=== PATIENT | male | born 1955 | race Caucasian/White ===

== ENCOUNTER 2017-02-11 13:04 | Emergency (ER) | payer OTHER ==
[~2017-02-11] VITALS: Wt 73.0 kg
[2017-02-11] MEDS ORDERED: CHLORPROMAZINE 25 MG INJ IM ONE (14:00)
[2017-02-11] MEDS ORDERED: morphine 4 MG/ML VIAL IV STA (14:36)
[2017-02-11] MEDS ORDERED: SOD CHLORIDE 0.9% 1,000 ML IV STA (14:36)
[2017-02-11] MEDS ORDERED: MAGNESIUM SULFATE 2 GM/50 ML 50 ML IVPB ONE (15:00)
[2017-02-11] MEDS ORDERED: METOCLOPRAMIDE 10 MG INJ IV ONE (15:00)
--- NOTE | 2017-02-11 15:24 | RADRPT ---
PROCEDURE: CT abdomen and pelvis without contrast. CLINICAL INDICATION: Abdominal pain. Recent cholecystectomy TECHNIQUE: CT scan of the abdomen and pelvis without contrast was performed on a multi-slice CT [facility] . Sagittal and coronal reformatted images were obtained from the axial source images. One or more of the following dose reduction techniques were used: - Automated exposure control. - Adjustment of the mA and/or kV according to patient size. - Use of iterative reconstruction technique. DLP 544.0 mGycm. CTDIvol 9.6 mGy COMPARISON: None FINDINGS: Trace layering bilateral pleural fluid is present. There is limited evaluation of the solid viscera from the lack of IV contrast. There are surgical changes of a cholecystectomy with a trace amount of air and fluid seen in the gal lbladder fossa with no organized fluid collection. Mild fat stranding is also present. Surgical drai nage catheter is seen extending into the gallbladder fossa. There is no evidence of bowel obstruction. There are loops of small bowel seen within the left abdom en involving the distal jejunum and proximal ileum with air-fluid levels. There is no intraperitonea l free air. There is no evidence of abscess. The appendix is not visualized. There is diverticulosis without diverticulitis. There are no enlarged lymph nodes. The kidneys are symmetric in size bilaterally. There is a punctate left mid kidney nonobstructing st one with no visible right-sided renal stones. No ureteral stones are present. There is no hydronephr osis or perinephric stranding. There is uniform density of the liver with no gross focal lesion or biliary ductal dilatation. The spleen is unremarkable without mass. The adrenal glands are within normal limits without mass. The pancreas is unremarkable without focal lesion or surrounding inflammatory changes. Small fat containing hernias are seen within the upper abdominal midline with small bilateral fat co ntaining inguinal hernias as well. There is aortic atherosclerosis without aneurysmal dilatation. Bilateral iliofemoral bypass. In ad dition bilateral common iliac artery stents are present. Degenerative changes are seen in the lumbar spine with no acute osseous abnormality. The prostate is moderately enlarged. IMPRESSION: There are surgical changes of cholecystectomy with a small amount of air and fluid seen in the surgi caleb bed without organized fluid collection. Fluid may be postsurgical in nature however the presence of biliary leak is not fully excluded. Mildly dilated small is seen in the left lower quadrant with air-fluid levels ileus without evidence of a complete obstruction. A developing partial obstruction can also be considered within the diffe rential. Punctate nonobstructing left mid kidney renal stone is present. Surgical changes of the aorta and the presence of bilateral common iliac artery stents. Trace layering effusions. Small fat containing incisional related hernias are seen at the midline. Atherosclerotic disease is present. RPTAT: AA .Jaswant Lynch MD, Date Time Electronically viewed and signed by .Jaswant Lynch MD, MD on 02/11/2017 15:23 .J/
[2017-02-11] MEDS ORDERED: CHLO10TA9 PO (18:43)
[2017-02-11] MEDS ORDERED: METO10TA92 PO (18:43)
[2017-02-11] MEDS ORDERED: OXYC-279 PO (18:47)
--- NOTE | 2017-02-11 18:52 | ERD ---
ER Documentation Chief Complaint Chief Complaint HICCUPS X 5 DAYS HPI This 62-year-old presents 7 days after gallbladder surgery with 5 days of hiccups. Hiccups are exacerbating his right upper quadrant pain. He has had hiccups in the past prior to the gallbladder surgery. Has had no fever chills. He still passing gas and having bowel movements. ROS All systems reviewed and are negative except as per history of present illness. Medications Home Meds Active Scripts Oxycodone HCl/Acetaminophen (Percocet 5-325 mg Tablet) 1 Each Tablet, 1 EACH PO Q6, #14 TAB Prov:MARY SCHMITT DO 02/11/17 Chlorpromazine Hcl* (Thorazine*) 10 Mg Tab, 10 MG PO TID, #14 TAB Prov:MARY SCHMITT DO 02/11/17 Metoclopramide* (Reglan*) 10 Mg Tablet, 10 MG PO Q6 Y for NAUSEA AND/OR VOMITING , #20 TAB Prov:MARY SCHMITT DO 02/11/17 PMhx/Soc History of Surgery: Yes (Cholecystectomy) Hx Alcohol Use: No Hx Substance Use: No Hx Tobacco Use: No Smoking Status: Never smoker Physical Exam Vitals Vital Signs Date Time Temp Pulse Resp B/P Pulse Ox O2 Delivery O2 Flow Rate FiO2 02/11/17 13:08 98.0 101 18 166/90 99 Physical Exam Const: [] Moderate distress Head: Atraumatic Eyes: Normal Conjunctiva ENT: Normal External Ears, Nose and Mouth. Neck: Full range of motion..~ No meningismus. Resp: Clear to auscultation bilaterally Cardio: Regular rate and rhythm, no murmurs Abd: Soft, mild upper abdominal tenderness in the right side without guarding or rebound, non distended. Normal bowel sounds Skin: No petechiae or rashes Ext: No cyanosis, or edema Neur: Awake and alert oriented 3, no focal deficits Psych: Normal Mood and Affect Result Diagram: 02/11/17 1450 02/11/17 1450 Results 24 hrs Laboratory Tests Test 02/11/17 14:50 White Blood Count 11.410^3/ul Red Blood Count 4.3110^6/ul Hemoglobin 12.3g/dl Hematocrit 37.2% Mean Corpuscular Volume 86.3fl Mean Corpuscular Hemoglobin 28.5pg Mean Corpuscular Hemoglobin Concent 33.1g/dl Red Cell Distribution Width 13.6% Platelet Count 91012^3/UL Mean Platelet Volume 8.5fl Neutrophils % 78.7% Lymphocytes % 12.4% Monocytes % 6.9% Eosinophils % 0.8% Basophils % 0.4% Nucleated Red Blood Cells % 0.0/100WBC Neutrophils # 9.010^3/ul Lymphocytes # 1.410^3/ul Monocytes # 0.810^3/ul Eosinophils # 0.110^3/ul Basophils # 0.110^3/ul Nucleated Red Blood Cells # 0.010^3/ul Urine Color YELLOW Urine Clarity CLEAR Urine pH 6.0 Urine Specific [place] 1.024 Urine Ketones NEGATIVEmg/dL Urine Nitrite NEGATIVEmg/dL Urine Bilirubin NEGATIVEmg/dL Urine Urobilinogen NEGATIVEmg/dL Urine Leukocyte Esterase 1+Hali/ul Urine Microscopic RBC 0/HPF Urine Microscopic WBC 4/HPF Urine Mucus MODERATE/HPF Urine Hemoglobin NEGATIVEmg/dL Urine Glucose NEGATIVEmg/dL Urine Total Protein 1+mg/dl Sodium Level 144mmol/L Potassium Level 3.3mmol/L Chloride Level 102mmol/L Carbon Dioxide Level 30mmol/L Anion Gap 15 Blood Urea Nitrogen 4mg/dl Creatinine 0.89mg/dl Glucose Level 109mg/dl Calcium Level 8.6mg/dl Total Bilirubin 0.2mg/dl Direct Bilirubin 0.00mg/dl Indirect Bilirubin 0.2mg/dl Aspartate Amino Transf (AST/SGOT) 88IU/L Alanine Aminotransferase (ALT/SGPT) 107IU/L Alkaline Phosphatase 70IU/L Total Protein 6.6g/dl Albumin 3.7g/dl Globulin 2.90g/dl Albumin/Globulin Ratio 1.27 Lipase 502U/L Current Medications Medications (Trade) Dose Ordered Sig/Lore Route PRN Reason Start Time Stop Time Status Last Admin Dose Admin Chlorpromazine 25 mg 25 mg ONCE ONCE IM 02/11/17 14:00 02/11/17 14:01 DC 02/11/17 14:56 Sodium Chloride (NS) 1,000 ml @ 1,000 mls/hr Q1H STAT IV 02/11/17 14:36 02/11/17 15:35 DC 02/11/17 15:22 Morphine Sulfate (morphine) 4 mg ONCE STAT IV 02/11/17 14:36 02/11/17 14:41 DC 02/11/17 15:21 Metoclopramide HCl 10 mg 10 mg ONCE ONCE IV 02/11/17 15:00 02/11/17 15:01 DC 02/11/17 15:21 Magnesium Sulfate (Magnesium Sulfate 2 Gm/50 ml) 50 ml @ 25 mls/hr ONCE ONCE IVPB 02/11/17 15:00 02/11/17 16:59 DC 02/11/17 15:21 Procedures/MDM Intractable hiccups likely secondary to diaphragmatic irritation from recent gallbladder surgery. Initial EKG was artifactual and irregular secondary to persistent hiccups. Patient is given 25 mg of Thorazine workup was performed secondary to the recent surgery and likely diaphragmatic irritation worry for perforation or infection. Normal postoperative changes seen. Normal postoperative labs with mild leukocytosis and mild out lipase elevation. She was also given 10 mg of Reglan 4 mg of morphine for the pain. Hiccups did subside after the Thorazine and morphine. Is also given 2 mg of magnesium his yard he had a prolonged QT on his initial EKGs and he was giving to medicines that lead to QT prolongation. She is still passing gas and having bowel movements without current ileus patient was monitored for several hours in the emergency room. In stable condition feeling much better. I am going to discharge him with Thorazine, Reglan and Percocet for any severe pain. She can call his surgeon on Tuesday to follow-up. CT abdomen pelvis interpretation: Postoperative changes with fat stranding and small amounts of air, no obvious abscess collection, no bowel obstruction with mild possible ileus, no renal abnormalities, no fracture EKG interpretation #1: Sinus tachycardia rate of 115 with significant artifact, prolonged QT at 558, normal axis. Abnormal EKG EKG interpretation #2: Normal sinus rhythm rate of 99, single PVC that was likely just a pickup, normal axis, no ST or T-wave changes concerning for acute ischemia, QT is 479. compliance monitor interpretation: Sinus rhythm without arrhythmia. Departure Diagnosis: Primary Impression: Hiccoughs Additional Impression: Postoperative pain Condition: Stable MARY SCHMITT DO Feb 11, 2017 18:52
[2017-02-11 19:00] VITALS: BP 188/85; PULSE 104; RESP 17; TEMP 97.9
== END 2017-02-11 19:03 | disposition home or self-care (01) ==
LOC: FTE 13:04
DX: R06.6 Hiccough (principal); G89.18 Other acute postprocedural pain; R10.11 Right upper quadrant pain
CPT/HCPCS: 36415; 74176; 80053; 81001; 83690; 85025; 93005; 96372; 96374; 96375; J2270; J2765; J3230; J3475; J7030; Z7502

== ENCOUNTER 2017-02-18 09:47 | Inpatient (IN) | payer OTHER ==
[~2017-02-18] VITALS: Ht 175.3 cm; Wt 72.0 kg
[~2017-02-18 09:47] MED LIST: CHLO10TA9 PO; METO10TA92 PO; OXYC-279 PO
[2017-02-18] MEDS ORDERED: HYDROmorphONE 1 MG/ML SYG IV STA (10:21)
[2017-02-18] MEDS ORDERED: SOD CHLORIDE 0.9% 1,000 ML IV STA (10:21)
[2017-02-18] MEDS ORDERED: ONDANSETRON 4 MG INJ IV STA (10:21)
[2017-02-18] MEDS ORDERED: CHLORPROMAZINE 25 MG INJ IM ONE (10:30)
[2017-02-18 10:56] LABS: BASOPHIL # 0.1 10^3/ul (0.0-0.1); BASOPHILS % 0.6 % (0.0-2.0); EOSINOPHILS % 0.2 % (0.0-7.0); HEMATOCRIT 38.6 % (42.0-52.0); HEMOGLOBIN 12.8 g/dl (14.0-18.0); LYMPHOCYTES # 1.2 10^3/ul (0.8-2.9); LYMPHOCYTES % 7.5 % (15.0-51.0); MEAN CORPUSCULAR HEMOGLOBIN 28.5 pg (29.0-33.0); MEAN CORPUSCULAR HGB CONC 33.2 g/dl (32.0-37.0); MEAN PLATELET VOLUME 8.3 fl (7.4-10.4); MONOCYTE # 0.9 10^3/ul (0.3-0.9); MONOCYTES % 5.3 % (0.0-11.0); NEUTROPHIL # 13.8 10^3/ul (1.6-7.5); NEUTROPHILS % 85.8 % (39.0-77.0); RED BLOOD COUNT 4.49 10^6/ul (4.70-6.10); RED CELL DISTRIBUTION WIDTH 13.4 % (11.5-14.5); WHITE BLOOD COUNT 16.1 10^3/ul (4.8-10.8)
[2017-02-18 11:10] LABS: PLATELET COUNT 697 10^3/UL (140-415)
[2017-02-18 11:15] LABS: INR 0.97; PARTIAL THROMBOPLASTIN TIME 29.1 Sec (25.0-35.0); PROTIME 12.9 Sec (12.2-14.2)
[2017-02-18 11:16] LABS: ALANINE AMINOTRANSFERASE 37 IU/L (13-69); ALBUMIN/GLOBULIN RATIO 1.21; ALKALINE PHOSPHATASE 80 IU/L (42-121); ANION GAP 15 (8-16); ASPARTATE AMINO TRANSFERASE 25 IU/L (15-46); BILIRUBIN,INDIRECT 0.3 mg/dl (0-1.1); BILIRUBIN,TOTAL 0.3 mg/dl (0.2-1.3); BLOOD UREA NITROGEN 11 mg/dl (7-20); CALCIUM 9.1 mg/dl (8.4-10.2); CARBON DIOXIDE 28 mmol/L (21-31); CHLORIDE 102 mmol/L (97-110); CREATININE 0.96 mg/dl (0.61-1.24); GLUCOSE 123 mg/dl (70-220); POTASSIUM 4.2 mmol/L (3.5-5.1); SODIUM 141 mmol/L (135-144); TOTAL PROTEIN 7.3 g/dl (6.1-8.1)
[2017-02-18 11:31] LABS: TROPONIN-I < 0.012 ng/ml (0.00-0.12)
[2017-02-18] MEDS ORDERED: IOHEXOL 300MG/ML 150 ML BTL ONE (11:55)
[2017-02-18] MEDS ORDERED: SOD CHLORIDE 0.9% 100 ML ONE (11:55)
--- NOTE | 2017-02-18 12:33 | RADRPT ---
PROCEDURE: CT ABDOMEN AND PELVIS WITH IV CONTRAST. CLINICAL INDICATION: Abdominal pain and vomiting. Post gallbladder surgery TECHNIQUE: CT scan of the abdomen and pelvis without contrast was performed on a multidetector hig h-resolution CT scanner following the use of IV contrast. 96 cc Omnipaque-300 was administered. Ahsan nal and sagittal reformatted images were obtained from the axial source images. Images were reviewed on a high-resolution PACS workstation. The total exam CTDI equals 10.7 mGy and the total exam DLP e quals 652 mGy-cm. One or more of the following dose reduction techniques were used: Automated exposure control. Adjustment of the mA and/or kV according to patient size. Use of iterative reconstruction technique. COMPARISON: February 11, 2017 FINDINGS: CT abdomen: The lung bases are clear. The heart size is within limits. There is no significant pericardial effus ion. Hepatic morphology is within limits. There is a 1.9 cm lesion within the posterior right lobe liver, with peripheral nodular enhancement, likely consistent with a benign hemangioma. Status post cholec ystectomy. There is a small focal fluid collection within the gallbladder fossa measuring 3.9 x 2.1 x 1.6 cm, containing air. The spleen and pancreas are within normal limits. Both adrenal glands are within normal limits. Both kidneys are and normal anatomic position. No evidence of obstruction or hydronephrosis. There a re small bilateral renal cysts. No gross renal/ureteric calculi. No evidence of obstruction or hydro nephrosis. The visualized GI tract demonstrate normal caliber loops of small and large bowel. No evidence of toney wel obstruction. Stool filled loops of large bowel noted. The appendix is not clearly identified, ho wever no inflammatory changes within the right lower quadrant. The aorta demonstrates atherosclerotic calcifications. Bilateral common iliac postsurgical changes a re noted with stents. No significant retroperitoneal lymphadenopathy. CT pelvis: The bladder is partially collapsed. The prostate gland is enlarged and lobulated measuring 5.3 x 5.0 cm. There is sigmoid diverticulosis. No significant free fluid. No significant pelvic lymphadenopat hy. The visualized osseous structures appears to be within normal limits. IMPRESSION: 1. THERE IS A SMALL FOCAL FLUID COLLECTION WITHIN THE GALLBLADDER FOSSA/SURGICAL BED MEASURING 3.9 X 2.1 X 1.6 CM, CONTAINING AIR. THIS IS NEW SINCE PRIOR EXAMINATION. CANNOT EXCLUDE THE POSSIBILITY O F ABSCESS. Postoperative seroma or biloma are also possibilities. Status post removal of previously noted surgical drainage catheter. 2. No evidence of bowel obstruction. Resolution of previously noted mildly dilated is fluid-filled l oops of small bowel. 3. Prostamegaly. Recommend correlation with PSA levels. 4. No evidence of bowel obstruction. Sigmoid diverticulosis. 5. No evidence of free fluid or free air. 6. Postsurgical changes of the aorta and common iliac arteries with stents. 7. 1.9 cm posterior right lobe liver benign hemangioma. RPTAT: AAPP Physician Kae Date Time Electronically viewed and signed by Physician Kae on 02/18/2017 12:32 MARIBELL/
[2017-02-18] MEDS ORDERED: SODIUM CHLORIDE 0.9% 1L BAG IV* STA (12:39)
[2017-02-18] MEDS ORDERED: PIPER-TAZO 3.375 GM IV (PMX) 50 ML IVPB STA (12:39)
[2017-02-18] MEDS ORDERED: VANCOMYCIN 1 GM (PMX) 250 ML IVPB STA (12:39)
[2017-02-18] MEDS ORDERED: ACETAMINOPHEN 325 MG TAB PO PRN ×2 (13:00→15:00)
[2017-02-18] MEDS ORDERED: ONDANSETRON 4 MG INJ IV PRN ×2 (13:00→15:00)
--- NOTE | 2017-02-18 13:42 | ERD ---
ER Documentation Chief Complaint Chief Complaint ABD. PAIN, N/V FOR 12 DAYS S/P CHOLECYSTECTOMY HPI Patient is a 62-year-old male with hypertension and hiccups who presents with abdominal pain. He had a cholecystectomy done 2 weeks ago. This was done at [facility]. He has persistent hiccups since then as well. He said that 2 days ago he started vomiting anything that he eats or drinks and cannot keep anything down. He has had soft stools. The patient has abdominal pain. He did have his BRADLEY drainage tube removed on Tuesday. Upon review of old medical records the patient one previous visit on February 11 for hiccups. ROS All systems reviewed and are negative except as per history of present illness. Medications Home Meds Active Scripts Oxycodone HCl/Acetaminophen (Percocet 5-325 mg Tablet) 1 Each Tablet, 1 EACH PO Q6, #14 TAB Prov:MARY SCHMITT DO 02/11/17 Chlorpromazine Hcl* (Thorazine*) 10 Mg Tab, 10 MG PO TID, #14 TAB Prov:MARY SCHMITT DO 02/11/17 Metoclopramide* (Reglan*) 10 Mg Tablet, 10 MG PO Q6 Y for NAUSEA AND/OR VOMITING , #20 TAB Prov:MARY SCHMITT DO 02/11/17 Allergies Allergies: Coded Allergies: No Known Allergy (Unverified , 02/18/17) PMhx/Soc History of Surgery: Yes (Cholecystectomy) Hx Cardiac Disorders: Yes (HTN, HIGH CHOLESTEROL, AORTIC BYPASS) Hx Alcohol Use: No Hx Substance Use: No Hx Tobacco Use: No Smoking Status: Never smoker FmHx Family History: No diabetes Physical Exam Vitals Vital Signs Date Time Temp Pulse Resp B/P Pulse Ox O2 Delivery O2 Flow Rate FiO2 02/18/17 11:27 104 20 158/96 94 02/18/17 09:53 98.0 102 20 158/106 94 Physical Exam Const: Moderate distress secondary to pain and hiccups Head: Atraumatic Eyes: Normal Conjunctiva ENT: Normal External Ears, Nose and Mouth. Neck: Full range of motion..~ No meningismus. Resp: Clear to auscultation bilaterally Cardio: Tachycardic rate without murmur Abd: Diffuse tenderness to palpation without rebound or guarding Skin: No petechiae or rashes Back: No midline or flank tenderness Ext: No cyanosis, or edema Neur: Awake and alert Psych: Normal Mood and Affect Result Diagram: 02/18/17 1037 02/18/17 1037 Results 24 hrs Laboratory Tests Test 02/18/17 10:37 02/18/17 12:45 White Blood Count 16.110^3/ul Red Blood Count 4.4910^6/ul Hemoglobin 12.8g/dl Hematocrit 38.6% Mean Corpuscular Volume 86.0fl Mean Corpuscular Hemoglobin 28.5pg Mean Corpuscular Hemoglobin Concent 33.2g/dl Red Cell Distribution Width 13.4% Platelet Count 73076^3/UL Mean Platelet Volume 8.3fl Neutrophils % 85.8% Lymphocytes % 7.5% Monocytes % 5.3% Eosinophils % 0.2% Basophils % 0.6% Nucleated Red Blood Cells % 0.0/100WBC Neutrophils # 13.810^3/ul Lymphocytes # 1.210^3/ul Monocytes # 0.910^3/ul Eosinophils # 0.010^3/ul Basophils # 0.110^3/ul Nucleated Red Blood Cells # 0.010^3/ul Prothrombin Time 12.9Sec Prothrombin Time Ratio 1.0 INR International Normalized Ratio 0.97 Activated Partial Thromboplast Time 29.1Sec Sodium Level 141mmol/L Potassium Level 4.2mmol/L Chloride Level 102mmol/L Carbon Dioxide Level 28mmol/L Anion Gap 15 Blood Urea Nitrogen 11mg/dl Creatinine 0.96mg/dl Glucose Level 123mg/dl Calcium Level 9.1mg/dl Total Bilirubin 0.3mg/dl Direct Bilirubin 0.00mg/dl Indirect Bilirubin 0.3mg/dl Aspartate Amino Transf (AST/SGOT) 25IU/L Alanine Aminotransferase (ALT/SGPT) 37IU/L Alkaline Phosphatase 80IU/L Troponin I < 0.012ng/ml Total Protein 7.3g/dl Albumin 4.0g/dl Globulin 3.30g/dl Albumin/Globulin Ratio 1.21 Lipase 415U/L Lactic Acid Level 0.6mmol/L Current Medications Medications (Trade) Dose Ordered Sig/Lore Route PRN Reason Start Time Stop Time Status Last Admin Dose Admin Sodium Chloride (NS) 1,000 ml @ 1,000 mls/hr Q1H STAT IV 02/18/17 10:21 02/18/17 11:20 DC 02/18/17 10:50 Hydromorphone HCl (Dilaudid) 1 mg ONCE STAT IV 02/18/17 10:21 02/18/17 10:22 DC 02/18/17 10:50 Ondansetron HCl (Zofran Inj) 4 mg ONCE STAT IV 02/18/17 10:21 02/18/17 10:22 DC 02/18/17 10:50 Chlorpromazine (Thorazine) 25 mg ONCE ONCE IM 02/18/17 10:30 02/18/17 10:31 DC 02/18/17 11:26 IV Flush 10 ml 10 ml STK-MED ONCE .ROUTE 02/18/17 11:55 02/18/17 11:56 DC Sodium Chloride (NS) 100 ml @ ud STK-MED ONCE .ROUTE 02/18/17 11:55 02/18/17 11:56 DC Iohexol (Omnipaque 300mg/ ml) 150 ml STK-MED ONCE .ROUTE 02/18/17 11:55 02/18/17 11:56 DC Sodium Chloride 2210 ml 2,210 ml BOLUS OVER 2 HOURS STAT IV* 02/18/17 12:39 02/18/17 12:50 DC 02/18/17 13:03 Vancomycin HCl 250 ml @ 125 mls/hr ONCE STAT IVPB 02/18/17 12:39 02/18/17 14:38 Piperacillin Sod/ Tazobactam Sod (Zosyn 3.375gm/ 50 ml (Pmx)) 50 ml @ 100 mls/hr ONCE STAT IVPB 02/18/17 12:39 02/18/17 13:08 DC 02/18/17 13:33 Ondansetron HCl (Zofran Inj) 4 mg BRIDGE ORDER PRN IV NAUSEA AND/OR VOMITING 02/18/17 13:00 02/19/17 12:59 Acetaminophen (Tylenol Tab) 650 mg ER BRIDGE PRN PO MILD PAIN/FEVER 02/18/17 13:00 02/19/17 12:59 Procedures/MDM EKG read by me: Rate/Rhythm: Sinus tachycardia at a rate of 108 Intervals: Normal Impression: Sinus tachycardia without ischemia CT abdomen pelvis shows postoperative abscess per radiology. Admit MDM: Patient's infectious symptoms have not stabilized and the patient is at risk of rapid decompensation. The patient will be admitted for careful hydration, antibiotic therapy, and infectious source control. Severe Sepsis criteria: Infectious source: Postop abscess End organ damage indicated by: No end organ damage at this time Sepsis Management: Time of recognition of sepsis: 12:39 PM Within 3 hours of recognition: Blood cultures x 2 before broad-spectrum antibiotics: Yes 30 ml/kg NS bolus Completed Initial lactate normal Repeat lactate pending Time of recognition of septic shock: No septic shock Septic Shock Assessment: Any lactic acid > 4.0 No Persistent hypotension (SBP < 90 or 40 mmHg drop, MAP < 65) despite 30 mL/kg IV fluid bolus No Volume Re-assessment for Septic Shock (post 30 ml/kg bolus): No septic shock at this time Persistent Hypotension Treatment: Comfort care No Central line Not Required Vasopressor started Not required I considered further perfusion assessment with CVP measurement, SCVO2, bedside ultrasound volume assessment, passive leg raise, trial of further fluid bolus. And proceeded with 30 ml/kg fluid bolus of NSS, broad spectrum antibiotics, and admission. The patient was also given Thorazine 25 mg IM for hiccups which improved his hiccups but did not take them away completely. Accepting Care Team Current data and ongoing care discussed. Admitting Physician: Dr. Granger from the panel team Instant Potato Processor(s): None Outstanding Data: Culture results and repeat lactic acid Critical Care: Critical care time 35 minutes excluding all billable procedures Emergent fluid management while maintaining close respiratory support. Provision of immediate and broad-spectrum antibiotic therapy. Simultaneous assessment for possible sources in order to direct targeted therapy. Consideration for invasive and chemical support to prevent cardiopulmonary collapse. Departure Diagnosis: Primary Impression: Sepsis Sepsis type: sepsis due to unspecified organism Qualified Code: A41.9 - Sepsis, due to unspecified organism Additional Impressions: Postoperative abscess Encounter type: initial encounter Qualified Code: T81.4XXA - Postoperative abscess, initial encounter Abdominal pain Abdominal location: generalized Qualified Code: R10.84 - Generalized abdominal pain Condition: RESHMA Rowan MD Feb 18, 2017 13:42
[2017-02-18] MEDS ORDERED: LISI40TA9 PO (13:46)
[2017-02-18] MEDS ORDERED: SIMV20TA PO (13:48)
[2017-02-18] MEDS ORDERED: MULT1TAB59 PO (13:49)
[2017-02-18] MEDS ORDERED: DULO60CA59 PO (13:50)
[2017-02-18] MEDS ORDERED: DULO20CA43 PO (13:57)
[2017-02-18] MEDS ORDERED: ASPI81TA3 PO (13:58)
[2017-02-18] MEDS: SOD CHLORIDE 0.9% 1,000 ML IV SCH (14:54)
[2017-02-18] MEDS ORDERED: DOCUSATE SODIUM 100 MG CAP PO PRN (15:00)
[2017-02-18] MEDS ORDERED: NACL 0.9% 3 ML SYG IV SCH (15:00)
[2017-02-18] MEDS ORDERED: LIDOCAINE/MYLANTA 40 ML BTL PO ONE (15:00)
[2017-02-18] MEDS ORDERED: ACETAMINOPHEN 650 MG SUPP PR PRN (15:00)
--- NOTE | 2017-02-18 15:16 | HP ---
Date/Time of Note Date/Time of Note DATE: 02/18/17 TIME: 15:09 Assessment/Plan VTE Prophylaxis VTE Prophylaxis Intervention: ambulation Assessment/Plan Chief Complaint/Hosp Course 62-year-old male with a recent gangrenous and perforated cholecystitis who is status post cholecystectomy 2 weeks ago with status post BRADLEY drain removed on Tuesday, presenting to the emergency room with ongoing pickups, nausea and vomiting since surgery. Patient's initial workup showed a CT with possible intra-abdominal abscess around the surgical site. 1. Recent gangrene/perforated cholecystitis with status post cholecystectomy with CT findings of small focal fluid collection within the gallbladder containing air, with possible abscess. -Start broad-spectrum IV antimicrobials, IV fluids. -Surgery consult. 2. SIRS, likely secondary to #1. -Treatment as above. 3. Hiccups/nausea/vomiting, likely GERD. -Start PPIs, GI cocktail. Will also start patient on Reglan and muscle relaxant to alleviate hiccups. 4. Essential hypertension. -Resume home medications. 5. Hypercholesterolemia. -Resume statin. 6. Depression. -Resume home medications. Plan: After discussion with surgeon on-call , recommended transfer patient to [facility] under surgery service where he had cholecystectomy done. If transfer is not possible, patient will be admitted to inpatient medical surgical floor and will have inpatient surgical evaluation tomorrow. Rest of the management depend on hospital course. Patient was seen in collaboration with Dr. Granger. Problems: HPI/ROS Admit Date/Time Admit Date/Time Hx of Present Illness This is a 62-year-old male with a past medical history of hypertension, hypercholesterolemia, iliac artery stents,, depression, recent gangrenous and perforated cholecystectomy 2 weeks ago at [facility] with BRADLEY drain removed on 02/14/2017, presented to the emergency room with complaints of hiccups with nausea and vomiting since discharge from the hospital after surgery. Patient completed his antibiotic course as outpatient. Patient denied any abdominal pain, chills or fever. Patient denied constipation or diarrhea. He denies chest pain, shortness of breath, dizziness, loss of consciousness, hematemesis, hematochezia, melena or other constitutional symptoms. A CT abdomen and pelvis showed fluid collection within the gallbladder fossa with air. Patient also had WBC 16,100. His platelet count was 697. Patient was treated with sepsis protocol with IV Zosyn, vancomycin and IV fluids. Cultures were drawn from the emergency room. ROS A 12 point review of system was assessed and is negative other than what is mentioned in the HPI. PMH/Family/Social Past Medical History See HPI Past Surgical History See HPI Social History Former smoker who quit 1 year ago. Denied any alcohol or illicit drug use history. Smoking Status: Never smoker Exam/Review of Systems Vital Signs Vitals Vital Signs Date Time Temp Pulse Resp B/P Pulse Ox O2 Delivery O2 Flow Rate FiO2 02/18/17 14:50 90 20 145/61 94 02/18/17 09:53 98.0 Exam Exam General: Well developed,adequately built, not in any acute distress . HEENT: Normocephalic, Atraumatic, No laceration or hematoma; Eyes: PEERL, Conjunctiva clear, Anicteric sclera Neck: Supple without any lymphadenopathy, nontender, no JVD, no carotid bruits, trachea midline, no thyromegaly Cardiac: S1, S2 auscultated, regular rhythm and rate, no mumurs or gallop Pulmonary: Normal respiratory effort. Chest clear to auscultation bilaterally, no adventitious breath sounds GI: Abdomen with laparoscopic incisions. Soft, non tender, non- distended, no masses, no rebound tenderness or guarding. Bowel sounds active on all four quadrants Genitourinary: Deferred Extremities: No cyanosis, clubbing, or edema. Pulses [2+] bilaterally. Full ROM on all four extremities. No focal weakness appreciated. Neurologic: Alert to person, place, time, and situation. Affect appropriate, intact sensation. Skin: Clean,dry, and intact. No ecchymosis, no rashes, or lesions Labs Result Diagram: 02/18/17 1037 02/18/17 CRISTIANA VILLATORO NP Feb 18, 2017 15:15
[2017-02-18] MEDS ORDERED: VANCOMYCIN IV PER PHARMACY XX SCH (15:30)
[2017-02-18] MEDS: morphine 2 MG INJ IV PRN (16:52)
[2017-02-18] MEDS: METOCLOPRAMIDE 10 MG INJ IV SCH ×2 (17:21→23:53)
[2017-02-18] MEDS: PANTOPRAZOLE 40 MG INJ IV SCH (17:21)
[2017-02-18] MEDS: PIPER-TAZO 3.375 GM IV (PMX) 50 ML IVPB SCH (17:50)
[2017-02-18 18:41] VITALS: TEMP 98.8
[2017-02-18 19:53] VITALS: Ht 175.3 cm; Wt 72.0 kg
[2017-02-18 19:54] VITALS: BP 165/80; RESP 18
[2017-02-18] MEDS ORDERED: CHLORPROMAZINE 25 MG INJ IM PRN (20:30)
[2017-02-18] MEDS: BACLOFEN 10 MG TAB PO SCH (21:00)
[2017-02-18] MEDS: ATORVASTATIN 10 MG TAB PO SCH (21:00)
[2017-02-18] MEDS: VANCOMYCIN 1 GM in NS 250 ML IVPB SCH (21:19)
[2017-02-19] MEDS: morphine 2 MG INJ IV PRN ×3 (00:14→15:45)
[2017-02-19] MEDS: PIPER-TAZO 3.375 GM IV (PMX) 50 ML IVPB SCH ×5 (00:14→23:59)
[2017-02-19] MEDS: SOD CHLORIDE 0.9% 1,000 ML IV SCH (05:18)
[2017-02-19] MEDS: METOCLOPRAMIDE 10 MG INJ IV SCH ×4 (05:19→23:59)
[2017-02-19] MEDS: PANTOPRAZOLE 40 MG INJ IV SCH ×2 (05:19→17:30)
[2017-02-19 05:57] LABS: BASOPHIL # 0.1 10^3/ul (0.0-0.1); BASOPHILS % 0.9 % (0.0-2.0); EOSINOPHILS # 0.1 10^3/ul (0.0-0.5); EOSINOPHILS % 0.5 % (0.0-7.0); HEMATOCRIT 29.7 % (42.0-52.0); HEMOGLOBIN 9.8 g/dl (14.0-18.0); LYMPHOCYTES # 1.1 10^3/ul (0.8-2.9); MEAN CORPUSCULAR HEMOGLOBIN 28.8 pg (29.0-33.0); MEAN CORPUSCULAR VOLUME 87.4 fl (82.0-101.0); MEAN PLATELET VOLUME 8.8 fl (7.4-10.4); MONOCYTE # 0.6 10^3/ul (0.3-0.9); MONOCYTES % 6.6 % (0.0-11.0); NEUTROPHIL # 7.7 10^3/ul (1.6-7.5); NEUTROPHILS % 80.7 % (39.0-77.0); PLATELET COUNT 479 10^3/UL (140-415); RED CELL DISTRIBUTION WIDTH 13.4 % (11.5-14.5); WHITE BLOOD COUNT 9.6 10^3/ul (4.8-10.8)
[2017-02-19 06:25] LABS: ALBUMIN 2.6 g/dl (3.3-4.9); ALBUMIN/GLOBULIN RATIO 0.92; BILIRUBIN,INDIRECT 0.3 mg/dl (0-1.1); BILIRUBIN,TOTAL 0.3 mg/dl (0.2-1.3); CALCIUM 8.3 mg/dl (8.4-10.2); CREATININE 0.99 mg/dl (0.61-1.24); PHOSPHORUS 3.7 mg/dl (2.5-4.9); POTASSIUM 4.2 mmol/L (3.5-5.1); TOTAL PROTEIN 5.4 g/dl (6.1-8.1)
[2017-02-19 06:54] LABS: THYROID STIMULATING HORMONE 0.441 MIU/L (0.465-4.680)
[2017-02-19 07:15] LABS: ADD UMIC NO; UR ASCORBIC ACID NEGATIVE (NEGATIVE); UR BILIRUBIN (Dip) NEGATIVE (NEGATIVE); UR BLOOD (Dip) NEGATIVE (NEGATIVE); UR CLARITY CLEAR (CLEAR); UR COLOR YELLOW (YELLOW); UR GLUCOSE (Dip) NEGATIVE (NEGATIVE); UR KETONES (Dip) NEGATIVE (NEGATIVE); UR LEUKOCYTE ESTERASE (Dip) NEGATIVE Leu/ul (NEGATIVE); UR NITRITE (Dip) NEGATIVE (NEGATIVE); UR SPECIFIC GRAVITY (Dip) 1.021 (1.003-1.030); UR TOTAL PROTEIN (Dip) NEGATIVE (NEGATIVE); UR UROBILINOGEN (Dip) NEGATIVE (NEGATIVE)
[2017-02-19 08:31] VITALS: BP 135/80; PULSE 85; RESP 18
[2017-02-19] MEDS: LISINOPRIL 20 MG TAB PO SCH (08:39)
[2017-02-19] MEDS: ASPIRIN 81 MG TAB PO SCH (08:39)
[2017-02-19] MEDS: BACLOFEN 10 MG TAB PO SCH ×2 (08:40→21:28)
[2017-02-19] MEDS: DULOXETINE 20 MG CAP DR PO SCH (08:40)
--- NOTE | 2017-02-19 08:58 | PN ---
Date/Time of Note Date/Time of Note DATE: 02/19/17 TIME: 08:55 Assessment/Plan VTE Prophylaxis VTE Prophylaxis Intervention: ambulation Lines/Catheters IV [facility]from [facility]): Peripheral IV Assessment/Plan Chief Complaint/Hosp Course 62-year-old male with recent history of gangrenous and perforated cholecystitis who is status post cholecystectomy 2 weeks ago with status post BRADLEY drain removed on Tuesday, presenting to the emergency room with ongoing Hiccups, nausea and vomiting since surgery. Patient's initial workup showed a CT with possible intra-abdominal abscess around the surgical site. 1. Recent gangrene/perforated cholecystitis with status post cholecystectomy with CT findings of small focal fluid collection within the gallbladder containing air, with possible abscess. -Continue broad-spectrum IV antimicrobials, IV fluids. -Surgery consult with and follow-up recommendations. 2. SIRS, likely secondary to #1. -Treatment as above. 3. Hiccups/nausea/vomiting, likely GERD. Improved. -Continue Protonix, Reglan and baclofen. 4. Essential hypertension. -Continue home medications. 5. Hypercholesterolemia. -Continue statin. 6. Depression. -Continue home medications. Plan: Continue current medical management. Follow-up with surgery recommendations. Patient was seen in collaboration with Dr. Granger. Problems: Subjective 24 Hr Interval Summary Free Text/Dictation Patient doing well. Remains afebrile. Hiccups resolved. He now reports abdominal pain. Exam/Review of Systems Vital Signs Vitals Vital Signs Date Time Temp Pulse Resp B/P Pulse Ox O2 Delivery O2 Flow Rate FiO2 02/19/17 08:31 98.4 85 18 135/80 96 Room Air Intake and Output 02/18/17 02/18/17 02/19/17 15:00 23:00 07:00 Intake Total 1350 ml Output Total 200 ml 800 ml Balance -200 ml 550 ml Exam General: Well developed,adequately built, not in any acute distress . HEENT: Normocephalic, Atraumatic, No laceration or hematoma; Eyes: PEERL, Conjunctiva clear, Anicteric sclera Neck: Supple without any lymphadenopathy, nontender, no JVD, no carotid bruits, trachea midline, no thyromegaly Cardiac: S1, S2 auscultated, regular rhythm and rate, no mumurs or gallop Pulmonary: Normal respiratory effort. Chest clear to auscultation bilaterally, no adventitious breath sounds GI: With tenderness to right upper and lower quadrants. Abdomen with laparoscopic incisions. Soft, non- distended, no masses, no rebound tenderness or guarding. Bowel sounds active on all four quadrants Genitourinary: Deferred Extremities: No cyanosis, clubbing, or edema. Pulses [2+] bilaterally. Full ROM on all four extremities. No focal weakness appreciated. Neurologic: Alert to person, place, time, and situation. Affect appropriate, intact sensation. Skin: Clean,dry, and intact. No ecchymosis, no rashes, or lesions Results Result Diagram: 02/19/17 0504 02/19/17 0505 Results 24 hrs Laboratory Tests Test 02/18/17 10:37 02/18/17 12:45 02/18/17 17:05 02/18/17 21:09 White Blood Count 16.1 #H Red Blood Count 4.49 L Hemoglobin 12.8 L Hematocrit 38.6 L Mean Corpuscular Volume 86.0 Mean Corpuscular Hemoglobin 28.5 L Mean Corpuscular Hemoglobin Concent 33.2 Red Cell Distribution Width 13.4 Platelet Count 697 #H Mean Platelet Volume 8.3 Neutrophils % 85.8 H Lymphocytes % 7.5 L Monocytes % 5.3 Eosinophils % 0.2 Basophils % 0.6 Nucleated Red Blood Cells % 0.0 Neutrophils # 13.8 H Lymphocytes # 1.2 Monocytes # 0.9 Eosinophils # 0.0 Basophils # 0.1 Nucleated Red Blood Cells # 0.0 Prothrombin Time 12.9 Prothrombin Time Ratio 1.0 INR International Normalized Ratio 0.97 Activated Partial Thromboplast Time 29.1 Sodium Level 141 Potassium Level 4.2 Chloride Level 102 Carbon Dioxide Level 28 Anion Gap 15 Blood Urea Nitrogen 11 Creatinine 0.96 Glucose Level 123 Calcium Level 9.1 Total Bilirubin 0.3 Direct Bilirubin 0.00 Indirect Bilirubin 0.3 Aspartate Amino Transf (AST/SGOT) 25 Alanine Aminotransferase (ALT/SGPT) 37 Alkaline Phosphatase 80 Troponin I < 0.012 Total Protein 7.3 Albumin 4.0 Globulin 3.30 H Albumin/Globulin Ratio 1.21 Lipase 415 H Lactic Acid Level 0.6 1.8 0.7 Test 02/19/17 05:04 02/19/17 05:05 02/19/17 05:30 White Blood Count 9.6 # Red Blood Count 3.40 #L Hemoglobin 9.8 #L Hematocrit 29.7 #L Mean Corpuscular Volume 87.4 Mean Corpuscular Hemoglobin 28.8 L Mean Corpuscular Hemoglobin Concent 33.0 Red Cell Distribution Width 13.4 Platelet Count 479 #H Mean Platelet Volume 8.8 Neutrophils % 80.7 H Lymphocytes % 11.0 L Monocytes % 6.6 Eosinophils % 0.5 Basophils % 0.9 Nucleated Red Blood Cells % 0.0 Neutrophils # 7.7 H Lymphocytes # 1.1 Monocytes # 0.6 Eosinophils # 0.1 Basophils # 0.1 Nucleated Red Blood Cells # 0.0 Hemoglobin A1c 5.5 Sodium Level 141 Potassium Level 4.2 Chloride Level 107 Carbon Dioxide Level 29 Anion Gap 9 # Blood Urea Nitrogen 8 Creatinine 0.99 Glucose Level 90 Calcium Level 8.3 L Phosphorus Level 3.7 Magnesium Level 2.0 Total Bilirubin 0.3 Direct Bilirubin 0.00 Indirect Bilirubin 0.3 Aspartate Amino Transf (AST/SGOT) 27 Alanine Aminotransferase (ALT/SGPT) 36 Alkaline Phosphatase 62 Total Protein 5.4 #L Albumin 2.6 #L Globulin 2.80 Albumin/Globulin Ratio 0.92 Triglycerides Level 106 Cholesterol Level 122 LDL Cholesterol, Calculated 77 HDL Cholesterol 24 L Cholesterol/HDL Ratio 5.0 Thyroid Stimulating Hormone (TSH) 0.441 L Urine Color YELLOW Urine Clarity CLEAR Urine pH 5.0 Urine Specific [place] 1.021 Urine Ketones NEGATIVE Urine Nitrite NEGATIVE Urine Bilirubin NEGATIVE Urine Urobilinogen NEGATIVE Urine Leukocyte Esterase NEGATIVE Urine Hemoglobin NEGATIVE Urine Glucose NEGATIVE Urine Total Protein NEGATIVE Medications Medications Current Medications Sodium Chloride (NS) 1,000 ml @ 75 mls/hr [id number] IV Last administered on t 05:18; Admin Dose 75 MLS/HR; Start 02/18/17 at 14:54 Ondansetron HCl (Zofran Inj) 4 mg Q6H PRN IV NAUSEA AND/OR VOMITING; Start 01/25 at 15:00 Acetaminophen (Tylenol Tab) 650 mg Q6H PRN PO PAIN LEVEL 1-3 OR FEVER; Start 02/18/17 at 15:00 Acetaminophen (Tylenol Supp) 650 mg Q6H PRN [place] PAIN LEVEL 1-3 OR FEVER; Start 02/18/17 at 15:00 Morphine Sulfate (morphine) 2 mg Q4H PRN IV SEVERE PAIN LEVEL 7-10 Last administered on 02/19/17 08:39; Admin Dose 2 MG; Start 02/18/17 at 15:00 Docusate Sodium (Colace) 100 mg Q12H PRN PO CONSTIPATION; Start 02/18/17 at 15 :00 Pantoprazole (Protonix Iv) 40 mg BID@06,18 IV Last administered on 02/19/17 05:19; Admin Dose 40 MG; Start 02/18/17 at 18:00 Aspirin (Aspirin) 81 mg DAILY PO Last administered on 02/19/17 08:39; Admin Dose 81 MG; Start 02/19/17 at 09:00 Duloxetine HCl (Cymbalta) 20 mg DAILY PO Last administered on 02/19/17 08:40 ; Admin Dose 20 MG; Start 02/19/17 at 09:00 Lisinopril (Zestril) 40 mg DAILY PO Last administered on 02/19/17 08:39; Admin Dose 40 MG; Start 02/19/17 at 09:00 Atorvastatin Calcium (Lipitor) 10 mg DAILY@21 PO ; Start 02/18/17 at 21:00 Metoclopramide HCl (Reglan) 10 mg Q6 IV Last administered on 02/19/17 05:19; Admin Dose 10 MG; Start 02/18/17 at 18:00 Baclofen 5 mg 5 mg BID PO Last administered on 02/19/17 08:40; Admin Dose 5 MG; Start 02/18/17 at 21:00 Piperacillin Sod/ Tazobactam Sod 50 ml @ 100 mls/hr Q6 IVPB Last administered on 02/19/17 05:20; Admin Dose 100 MLS/HR; Start 02/18/17 at 18:00 Vancomycin HCl (Vancocin) 250 ml @ 125 mls/hr Q12H IVPB Last administered on 02/18/17 21:19; Admin Dose 125 MLS/HR; Start 02/18/17 at 22:00 Chlorpromazine (Thorazine) 25 mg Q6 PRN IM HICCUPS Last administered on 23:53; Admin Dose 25 MG; Start 02/18/17 at 20:30 CRISTIANA BENTLEY V. JOB COACH Feb 19, 2017 08:58
[2017-02-19 10:37] LABS: IRON 22 ug/dl (35-150)
[2017-02-19] MEDS: VANCOMYCIN 1 GM in NS 250 ML IVPB SCH ×2 (10:37→21:29)
[2017-02-19 10:45] LABS: TOTAL IRON BINDING CAPACITY 226 ug/dl (241-421)
--- NOTE | 2017-02-19 14:07 | CONS ---
Date/Time of Note Date/Time of Note DATE: 02/19/17 TIME: 14:05 Assessment/Plan Assessment/Plan Additional Assessment/Plan [facility] INPATIENT CONSULTATION NOTE DATE OF SERVICE: 02/19/2017 PLACE OF SERVICE: [facility], fourth floor ASSESSMENT AND PLAN: A very-pleasant 62-year-old gentleman with a few comorbidities including few abdominal operations in the past, presenting with a picture consistent with possible infectious complication after what appears to be difficult and complicated gangrenous cholecystitis and was treated with laparoscopic cholecystectomy 2 weeks ago. Given the description that the patient and family gave me and the need for operative drainage of the surgical area after the operation, it appears that the patient's cholecystitis was severe. For this reason, patient's current symptoms appear to be related to that pathophysiology. Since the patient has improved significantly over the past 12 hours with intravenous antibiotics and in-house care, we have to presume that there was a component of infectious etiology behind the patient's symptoms. The size of the fluid collection in gallbladder fossa is relatively small and given the patient's improvement so far, it may be possible for us to manage this without drainage procedure. There is certainly no indication for operative intervention at this time. Abdomen remains benign. There is no evidence of active bile leak or obvious injury to biliary system including the common bile duct. I suspect that the patient will need 1 or a few days hospital observation and treatment with intravenous antibiotics with plans of converting to oral antibiotics and perhaps sending him home at that point. Patient will need close outpatient follow-up with his original surgeon afterwards. Explain all the above to the patient in person as well as to his sister who is his main medical advocate (? Respiratory therapist) over the phone and answered all questions. The patient and family appear to understand and agreed with plans. With above assessment, I've recommended the followin. Continue current cares with review of images with IR 2. Regular diet 3. Consider converting antimicrobials to p.o. tonight 4. Increase activity 5. Labs in a.m. 6. Will likely need at least 24-48 hours of further hospital stay prior to potential discharge home Thank you very much for having me involved in the care of this very pleasant patient and wonderful family. If you have any questions, please feel free to contact me at [phone]. Nature of presenting problem: Moderate severity Please note that, given the multiple number of diagnoses or management options, the moderate amount and/or complexity of data needed to be reviewed, and moderate risk of complications and/or morbidity or mortality, this qualifies as moderate complexity type of decision-making. Disclaimers: 1. Inadvertent spelling and grammatical errors are likely due to electronic health record (EHR)/dictation software used and do not reflect on the quality of delivered patient care. 2. The electronic timestamp recorded on this note does not necessarily reflect the actual date and time of the visit or the service. 3. Portions of this note may have been created through electronic templates and computer algorithms that might bring in information either from the system or from other physicians and providers. Please note that such information may or may not contain errors, the occurrence of which are outside of my control. In general (but not always) this happens either in the beginning or at the end of the note. The portion of the note that I have created are generally done in 1 continuous block of text, flanked at the beginning and at the end by " ", and entered into one field in the EHR. 4. There may be other unanticipated errors in the note that are outside of my control. I can only attest to the portions of the note that I have created. Updated clinical summary: A very-pleasant 62-year-old gentleman with a few comorbidities including few abdominal operations in the past, presenting with a picture consistent with possible infectious complication after what appears to be difficult and complicated gangrenous cholecystitis and was treated with laparoscopic cholecystectomy 2 weeks ago. Comorbidities: 1. Acute cholecystitis with gangrene, status post laparoscopic cholecystectomy end of January 2017 [facility], with surgical drain, removed 2016. Complicated by 2 weeks of hiccups that were intractable as well as 2 visits to the emergency department within the first 2 weeks of surgery, second which led to admission 2. Left inguinal hernia repair 3. 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 Status post appendectomy 5. Essential hypertension 6. Hypercholesterolemia 7. Depression CONSULTATION REQUESTED BY: Vielka Hook MD Dear Dr. Hook, Thank you very much for the opportunity to participate in the care of this very pleasant gentleman and his wonderful family. HISTORY OF PRESENT ILLNESS: The patient is a very pleasant 62-year-old gentleman with above-mentioned comorbidities whom we were kindly asked consult regarding management of his abdominal pain in the setting of laparoscopic cholecystectomy 2 weeks ago for what appears to be gangrenous cholecystitis. Patient reports improving significantly overnight where his hiccups have stopped. He also has very minimal abdominal discomfort and no sharp pains. He had had ongoing issues with hiccups since the surgery and had sought medical care as outlined above more than once until he was admitted with the current admission. Today, his white blood cell count has nicely come down from 16,000 to normal. Overall he feels improved and has no other major complaints. ALLERGIES: Midazolam MEDICATIONS Documented in the electronic records and reviewed by me. Please see the electronic records for details, as well as details for inpatient medications which were also reviewed by me. SOCIAL HISTORY: + Tob (quit 1 year ago); - ETOH; - IVDU FAMILY HISTORY: There are no significant medical, surgical or oncologic issues in the family as reported by the patient or reflected in the chart. REVIEW OF SYSTEMS: Other than mentioned above, there were no other pertinent positives or pertinent negatives in an otherwise complete 14 point review of systems. PHYSICAL EXAMINATION GENERAL: The patient appears to be a very pleasant gentleman of non- descent lying in bed, appearing stated age, and otherwise in no acute distress. BMI: 23.4 VITAL SIGNS: AVSS (please also see auto important data if available as well as the electronic records) HEENT: Normocephalic and atraumatic. Extraocular muscles and hearing are grossly intact bilaterally and symmetrically. Sclerae are nonicteric. Oral cavity is clear; oral mucosa appear to be pink and moist. Dentition: fair to poor. NECK: Supple. There is no lymphadenopathy or JVD. There is no submental, submandibular or supraclavicular lymphadenopathy. CHEST: Rises symmetrically with each breath; patient is breathing comfortably. There are no audible wheezes, rales or rhonchi on the gross exam. HEART: Pulse is regular and palpable on the right wrist. Capillary refill is normal. Carotid pulses are palpable bilaterally and symmetrically in the neck. EXTREMITIES: Lower extremities contain no pitting edema around the ankles bilaterally and symmetrically. ABDOMEN: Abdomen is soft, essentially nontender to palpation and nondistended. There is a well-healed midline incision that appears to be older. Newer laparoscopic cholecystectomy incisions appear to be clean, dry, and intact without any evidence of erythema, edema, discharge, or hernia. No evidence of ascites, organomegaly, caput medusae, engorged subcutaneous veins, or other abnormalities. There are no peritoneal signs or guarding. SKIN: Appears to be pink and feels warm to touch. NEUROLOGIC: Awake, alert, and follows commands appropriately. LABORATORY DATA: See below IMAGING: See electronic chart. Please note that I've personally reviewed all pertinent available images and I agree in general with their overall reported findings. Consultation Date/Type/Reason Admit Date/Time Social History Smoking Status: Former smoker Exam/Review of Systems Vital Signs Vitals Vital Signs Date Time Temp Pulse Resp B/P Pulse Ox O2 Delivery O2 Flow Rate FiO2 02/19/17 08:31 98.4 85 18 135/80 96 Room Air Intake and Output 02/18/17 02/18/17 02/19/17 15:00 23:00 07:00 Intake Total 1350 ml Output Total 200 ml 800 ml Balance -200 ml 550 ml Results Result Diagram: 02/19/17 0504 02/19/17 0505 Results 24 hrs Laboratory Tests Test 02/18/17 17:05 02/18/17 21:09 02/19/17 05:04 02/19/17 05:05 Lactic Acid Level 1.8 0.7 White Blood Count 9.6 # Red Blood Count 3.40 #L Hemoglobin 9.8 #L Hematocrit 29.7 #L Mean Corpuscular Volume 87.4 Mean Corpuscular Hemoglobin 28.8 L Mean Corpuscular Hemoglobin Concent 33.0 Red Cell Distribution Width 13.4 Platelet Count 479 #H Mean Platelet Volume 8.8 Neutrophils % 80.7 H Lymphocytes % 11.0 L Monocytes % 6.6 Eosinophils % 0.5 Basophils % 0.9 Nucleated Red Blood Cells % 0.0 Neutrophils # 7.7 H Lymphocytes # 1.1 Monocytes # 0.6 Eosinophils # 0.1 Basophils # 0.1 Nucleated Red Blood Cells # 0.0 Hemoglobin A1c 5.5 Iron Level 22 L Total Iron Binding Capacity 226 L Percent Iron Saturation 10 L Free Thyroxine 1.27 Free Triiodothyronine (T3) pg/mL 2.99 Sodium Level 141 Potassium Level 4.2 Chloride Level 107 Carbon Dioxide Level 29 Anion Gap 9 # Blood Urea Nitrogen 8 Creatinine 0.99 Glucose Level 90 Calcium Level 8.3 L Phosphorus Level 3.7 Magnesium Level 2.0 Total Bilirubin 0.3 Direct Bilirubin 0.00 Indirect Bilirubin 0.3 Aspartate Amino Transf (AST/SGOT) 27 Alanine Aminotransferase (ALT/SGPT) 36 Alkaline Phosphatase 62 Total Protein 5.4 #L Albumin 2.6 #L Globulin 2.80 Albumin/Globulin Ratio 0.92 Triglycerides Level 106 Cholesterol Level 122 LDL Cholesterol, Calculated 77 HDL Cholesterol 24 L Cholesterol/HDL Ratio 5.0 Thyroid Stimulating Hormone (TSH) 0.441 L Test 02/19/17 05:30 Urine Color YELLOW Urine Clarity CLEAR Urine pH 5.0 Urine Specific [place] 1.021 Urine Ketones NEGATIVE Urine Nitrite NEGATIVE Urine Bilirubin NEGATIVE Urine Urobilinogen NEGATIVE Urine Leukocyte Esterase NEGATIVE Urine Hemoglobin NEGATIVE Urine Glucose NEGATIVE Urine Total Protein NEGATIVE Medications Medications Current Medications Sodium Chloride (NS) 1,000 ml @ 75 mls/hr [id number] IV Last administered on 05:18; Admin Dose 75 MLS/HR; Start 02/18/17 at 14:54 Ondansetron HCl (Zofran Inj) 4 mg Q6H PRN IV NAUSEA AND/OR VOMITING; Start 01/25 at 15:00 Acetaminophen (Tylenol Tab) 650 mg Q6H PRN PO PAIN LEVEL 1-3 OR FEVER; Start 02/18/17 at 15:00 Acetaminophen (Tylenol Supp) 650 mg Q6H PRN [place] PAIN LEVEL 1-3 OR FEVER; Start 02/18/17 at 15:00 Morphine Sulfate (morphine) 2 mg Q4H PRN IV SEVERE PAIN LEVEL 7-10 Last administered on 02/19/17 08:39; Admin Dose 2 MG; Start 02/18/17 at 15:00 Docusate Sodium (Colace) 100 mg Q12H PRN PO CONSTIPATION; Start 02/18/17 at 15 :00 Pantoprazole (Protonix Iv) 40 mg BID@06,18 IV Last administered on 02/19/17 05:19; Admin Dose 40 MG; Start 02/18/17 at 18:00 Aspirin (Aspirin) 81 mg DAILY PO Last administered on 02/19/17 08:39; Admin Dose 81 MG; Start 02/19/17 at 09:00 Duloxetine HCl (Cymbalta) 20 mg DAILY PO Last administered on 02/19/17 08:40 ; Admin Dose 20 MG; Start 02/19/17 at 09:00 Lisinopril (Zestril) 40 mg DAILY PO Last administered on 02/19/17 08:39; Admin Dose 40 MG; Start 02/19/17 at 09:00 Atorvastatin Calcium (Lipitor) 10 mg DAILY@21 PO ; Start 02/18/17 at 21:00 Metoclopramide HCl (Reglan) 10 mg Q6 IV Last administered on 02/19/17 12:19; Admin Dose 10 MG; Start 02/18/17 at 18:00 Baclofen 5 mg 5 mg BID PO Last administered on 02/19/17 08:40; Admin Dose 5 MG; Start 02/18/17 at 21:00 Piperacillin Sod/ Tazobactam Sod 50 ml @ 100 mls/hr Q6 IVPB Last administered on 02/19/17 12:19; Admin Dose 100 MLS/HR; Start 02/18/17 at 18:00 Vancomycin HCl (Vancocin) 250 ml @ 125 mls/hr Q12H IVPB Last administered on 02/19/17 10:37; Admin Dose 125 MLS/HR; Start 02/18/17 at 22:00 Chlorpromazine (Thorazine) 25 mg Q6 PRN IM HICCUPS Last administered on 23:53; Admin Dose 25 MG; Start 02/18/17 at 20:30 Miscellaneous Information (*Rx Drug Level Order Reminder*) VANCOMYCIN TROUGH ON 02/09... ONCE ONCE XX ; Start 02/20/17 at 09:00; Stop 02/20/17 at 09:01 MARI YOUNG M.D. Feb 19, 2017 14:07
[2017-02-19 14:10] VITALS: BP 150/72; RESP 18
[2017-02-19 19:42] VITALS: BP 118/57; PULSE 93; RESP 18
[2017-02-19] MEDS ORDERED: HYDROCODONE/APAP (5/325) TAB PO PRN (21:00)
[2017-02-19] MEDS: ATORVASTATIN 10 MG TAB PO SCH (21:28)
[2017-02-19] MEDS: HYDROCODONE/APAP (5/325) TAB PO PRN (21:29)
[2017-02-20] MEDS: HYDROCODONE/APAP (5/325) TAB PO PRN ×5 (03:31→22:14)
[2017-02-20 05:09] LABS: BASOPHIL # 0.1 10^3/ul (0.0-0.1); BASOPHILS % 1.2 % (0.0-2.0); EOSINOPHILS # 0.1 10^3/ul (0.0-0.5); EOSINOPHILS % 1.1 % (0.0-7.0); HEMATOCRIT 30.6 % (42.0-52.0); LYMPHOCYTES # 1.3 10^3/ul (0.8-2.9); LYMPHOCYTES % 12.4 % (15.0-51.0); MEAN CORPUSCULAR HEMOGLOBIN 28.1 pg (29.0-33.0); MEAN CORPUSCULAR HGB CONC 32.7 g/dl (32.0-37.0); MEAN PLATELET VOLUME 8.8 fl (7.4-10.4); MONOCYTE # 0.8 10^3/ul (0.3-0.9); MONOCYTES % 7.9 % (0.0-11.0); PLATELET COUNT 474 10^3/UL (140-415); RED BLOOD COUNT 3.56 10^6/ul (4.70-6.10); RED CELL DISTRIBUTION WIDTH 13.3 % (11.5-14.5); WHITE BLOOD COUNT 10.4 10^3/ul (4.8-10.8)
[2017-02-20 05:43] LABS: CALCIUM 8.2 mg/dl (8.4-10.2); CREATININE 0.97 mg/dl (0.61-1.24); POTASSIUM 3.8 mmol/L (3.5-5.1)
[2017-02-20] MEDS: PANTOPRAZOLE 40 MG INJ IV SCH ×2 (06:21→17:44)
[2017-02-20] MEDS: METOCLOPRAMIDE 10 MG INJ IV SCH ×3 (06:21→17:44)
[2017-02-20] MEDS: PIPER-TAZO 3.375 GM IV (PMX) 50 ML IVPB SCH ×3 (06:22→17:44)
[2017-02-20 07:49] VITALS: BP 125/59; RESP 20
[2017-02-20] MEDS: ASPIRIN 81 MG TAB PO SCH (08:29)
[2017-02-20] MEDS: BACLOFEN 10 MG TAB PO SCH ×2 (08:29→21:13)
[2017-02-20] MEDS: LISINOPRIL 20 MG TAB PO SCH (08:30)
[2017-02-20] MEDS: DULOXETINE 20 MG CAP DR PO SCH (08:30)
--- NOTE | 2017-02-20 09:12 | PN ---
Date/Time of Note Date/Time of Note DATE: 02/20/17 TIME: 09:06 Assessment/Plan VTE Prophylaxis VTE Prophylaxis Intervention: ambulation Lines/Catheters IV Catheter Type (from [facility]): Saline Lock Assessment/Plan Chief Complaint/Hosp Course 62-year-old male with recent history of gangrenous and perforated cholecystitis who is status post cholecystectomy 2 weeks ago with status post BRADLEY drain removed on Tuesday, presenting to the emergency room with ongoing Hiccups, nausea and vomiting since surgery. Patient's initial workup showed a CT with possible intra-abdominal abscess around the surgical site. 1. Recent gangrene/perforated cholecystitis with status post cholecystectomy with CT findings of small focal fluid collection within the gallbladder containing air, with possible abscess. -Expert care of is greatly appreciated and the recommendation is to continue medical management with antimicrobials as there is no immediate requirement of any surgical drainage of the abscess due to the small size of abscess as well as improvement in symptoms. -We will keep patient in-house for 24 hours on IV antibiotics and will follow up with final cultures with expectation that we can further narrow down antibiotics to oral and start discharge planning on Tuesday with outpatient follow-up with his surgeon at [facility]. 2. SIRS, likely secondary to #1. Resolved. No evidence of sepsis. -Treatment as above. 3. Hiccups/nausea/vomiting, likely GERD. Resolved. -Continue Protonix, Reglan and baclofen. 4. Essential hypertension. -Continue home medications. 5. Hypercholesterolemia. -Continue statin. 6. Depression. -Continue home medications. Plan: Continue current medical management. Follow-up final cultures. Estimated discharge planning in 24 hours if okay from surgery standpoint on oral antibiotics with outpatient follow-up. Patient was seen in collaboration with Dr. Granger. Problems: Subjective 24 Hr Interval Summary Free Text/Dictation Patient with excellent improvement in hiccups. He has not had a single episode of hiccups over the past 24-48 hours. Patient had surgery evaluation and he has been started on a regular diet which he is tolerating. He remains afebrile. Having mild abdominal pain but improved from before. Exam/Review of Systems Vital Signs Vitals Vital Signs Date Time Temp Pulse Resp B/P Pulse Ox O2 Delivery O2 Flow Rate FiO2 02/20/17 07:49 98.3 80 20 125/59 95 02/19/17 19:42 Room Air Intake and Output 02/19/17 02/19/17 02/20/17 14:59 22:59 06:59 Intake Total 1300 ml 200 ml 1050 ml Output Total 1200 ml Balance 1300 ml 200 ml -150 ml Exam General: Well developed,adequately built, not in any acute distress . HEENT: Normocephalic, Atraumatic, No laceration or hematoma; Eyes: PEERL, Conjunctiva clear, Anicteric sclera Neck: Supple without any lymphadenopathy, nontender, no JVD, no carotid bruits, trachea midline, no thyromegaly Cardiac: S1, S2 auscultated, regular rhythm and rate, no mumurs or gallop Pulmonary: Normal respiratory effort. Chest clear to auscultation bilaterally, no adventitious breath sounds GI: With mild tenderness to right upper and lower quadrants. Abdomen with laparoscopic incisions. Soft, non- distended, no masses, no rebound tenderness or guarding. Bowel sounds active on all four quadrants Genitourinary: Deferred Extremities: No cyanosis, clubbing, or edema. Pulses [2+] bilaterally. Full ROM on all four extremities. No focal weakness appreciated. Neurologic: Alert to person, place, time, and situation. Affect appropriate, intact sensation. Skin: Clean,dry, and intact. No ecchymosis, no rashes, or lesions Results Result Diagram: 02/20/1742702/20/17427 Results 24 hrs Laboratory Tests Test 02/20/17 04:28 White Blood Count 10.4 Red Blood Count 3.56 L Hemoglobin 10.0 L Hematocrit 30.6 L Mean Corpuscular Volume 86.0 Mean Corpuscular Hemoglobin 28.1 L Mean Corpuscular Hemoglobin Concent 32.7 Red Cell Distribution Width 13.3 Platelet Count 474 H Mean Platelet Volume 8.8 Neutrophils % 77.0 Lymphocytes % 12.4 L Monocytes % 7.9 Eosinophils % 1.1 Basophils % 1.2 Nucleated Red Blood Cells % 0.0 Neutrophils # 8.0 H Lymphocytes # 1.3 Monocytes # 0.8 Eosinophils # 0.1 Basophils # 0.1 Nucleated Red Blood Cells # 0.0 Sodium Level 139 Potassium Level 3.8 Chloride Level 104 Carbon Dioxide Level 28 Anion Gap 11 Blood Urea Nitrogen 7 Creatinine 0.97 Glucose Level 96 Calcium Level 8.2 L Medications Medications Current Medications Ondansetron HCl (Zofran Inj) 4 mg Q6H PRN IV NAUSEA AND/OR VOMITING; Start 01/25 at 15:00 Acetaminophen (Tylenol Tab) 650 mg Q6H PRN PO PAIN LEVEL 1-3 OR FEVER; Start 02/18/17 at 15:00 Acetaminophen (Tylenol Supp) 650 mg Q6H PRN HI PAIN LEVEL 1-3 OR FEVER; Start 02/18/17 at 15:00 Morphine Sulfate (morphine) 2 mg Q4H PRN IV SEVERE PAIN LEVEL 7-10 Last administered on 02/19/17 15:45; Admin Dose 2 MG; Start 02/18/17 at 15:00 Docusate Sodium (Colace) 100 mg Q12H PRN PO CONSTIPATION; Start 02/18/17 at 15 :00 Pantoprazole (Protonix Iv) 40 mg BID@06,18 IV Last administered on 02/20/17 06:21; Admin Dose 40 MG; Start 02/18/17 at 18:00 Aspirin (Aspirin) 81 mg DAILY PO Last administered on 02/20/17 08:29; Admin Dose 81 MG; Start 02/19/17 at 09:00 Duloxetine HCl (Cymbalta) 20 mg DAILY PO Last administered on 02/20/17 08:30 ; Admin Dose 20 MG; Start 02/19/17 at 09:00 Lisinopril (Zestril) 40 mg DAILY PO Last administered on 02/20/17 08:30; Admin Dose 40 MG; Start 02/19/17 at 09:00 Atorvastatin Calcium (Lipitor) 10 mg DAILY@21 PO Last administered on 21:28; Admin Dose 10 MG; Start 02/18/17 at 21:00 Metoclopramide HCl (Reglan) 10 mg Q6 IV Last administered on 02/20/17 06:21; Admin Dose 10 MG; Start 02/18/17 at 18:00 Baclofen 5 mg 5 mg BID PO Last administered on 02/20/17 08:29; Admin Dose 5 MG; Start 02/18/17 at 21:00 Piperacillin Sod/ Tazobactam Sod 50 ml @ 100 mls/hr Q6 IVPB Last administered on 02/20/17 06:22; Admin Dose 100 MLS/HR; Start 02/18/17 at 18:00 Vancomycin HCl (Vancocin) 250 ml @ 125 mls/hr Q12H IVPB Last administered on 02/19/17 21:29; Admin Dose 125 MLS/HR; Start 02/18/17 at 22:00 Chlorpromazine (Thorazine) 25 mg Q6 PRN IM HICCUPS Last administered on 23:53; Admin Dose 25 MG; Start 02/18/17 at 20:30 Acetaminophen/ Hydrocodone Bitart ([place] (5/325)) 1 tab Q4H PRN PO PAIN LEVEL 4 -6; Start 02/19/17 at 21:00 Acetaminophen/ Hydrocodone Bitart ([place] (5/325)) 2 tab Q4H PRN PO PAIN LEVEL 7 -10 Last administered on 02/20/17 08:29; Admin Dose 2 TAB; Start 02/19/17 at 21:00 CRISTIANA BENTLEY NP Feb 20, 2017 09:12
[2017-02-20] MEDS: VANCOMYCIN 1 GM in NS 250 ML IVPB SCH (10:26)
--- NOTE | 2017-02-20 13:11 | PN ---
Date/Time of Note Date/Time of Note DATE: 02/20/17 TIME: 13:10 Assessment/Plan Lines/Catheters IV Catheter Type (from [facility]): Saline Lock Assessment/Plan Assessment/Plan [facility] Progress Note Date of Service: 02/20/2017 Location of Service: Fourth floor Today's Assessment & Plan: Overall stable and doing well. Abdomen remains benign. No indication for acute surgical intervention. Awaiting further medical stabilization prior to potentially discharging the patient (possibly in the next 24-48 hours). After I met with the patient, I had a discussion with conventional radiology (Dr. Vivas) who believes that the findings of the CT scan are consistent with residence of fibrillar in the gallbladder bed and no obvious indication for drainage procedure. For this reason, I believe that the patient may be able to discharge home if he remains stable overnight and has no other further issues tomorrow. With the exception of the conversation with interventional radiology , I had discussed all of the above with the patient (no family present in the room) and answered all questions. Patient appeared to understand and agreed with plans. With above assessment, I've recommended the followin. Continue current cares 2. Regular diet 3. PO antimicrobials 4. Increase activity 5. Labs in a.m. 6. Potential discharge home in 24-48 hrs Thank you very much for having me involved in the care of this very pleasant patient and wonderful family. If you have any questions, please feel free to contact me at [phone]. Nature of presenting problem: Moderate severity Please note that, given the multiple number of diagnoses or management options, the moderate amount and/or complexity of data needed to be reviewed, and moderate risk of complications and/or morbidity or mortality, this qualifies as moderate complexity type of decision-making. Disclaimers: 1. Inadvertent spelling and grammatical errors are likely due to electronic health record (EHR)/dictation software used and do not reflect on the quality of delivered patient care. 2. The electronic timestamp recorded on this note does not necessarily reflect the actual date and time of the visit or the service. 3. Portions of this note may have been created through electronic templates and computer algorithms that might bring in information either from the system or from other physicians and providers. Please note that such information may or may not contain errors, the occurrence of which are outside of my control. In general (but not always) this happens either in the beginning or at the end of the note. The portion of the note that I have created are generally done in 1 continuous block of text, flanked at the beginning and at the end by " ", and entered into one field in the EHR. 4. There may be other unanticipated errors in the note that are outside of my control. I can only attest to the portions of the note that I have created. Updated clinical summary: A very-pleasant 62-year-old gentleman with a few comorbidities including few abdominal operations in the past, presenting with a picture consistent with possible infectious complication after what appears to be difficult and complicated gangrenous cholecystitis and was treated with laparoscopic cholecystectomy 2 weeks ago. Comorbidities: 1. Acute cholecystitis with gangrene, status post laparoscopic cholecystectomy end of January 2017 [facility], with surgical drain, removed 2016. Complicated by 2 weeks of hiccups that were intractable as well as 2 visits to the emergency department within the first 2 weeks of surgery, second which led to admission 2. Left inguinal hernia repair 3. 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 Status post appendectomy 5. Essential hypertension 6. Hypercholesterolemia 7. Depression Subjective: No major events or complaints; reports feeling much better; no abd pain and under control with medications; no n/v/d; no sob or cp; + bowel activity; + activity Objective: Vitals: See below Exam: GENERAL: On exam, the patient was laying in bed and appeared to be comfortable and in no acute distress. ABDOMEN: Soft, nontender and nondistended. Incisions are clean, dry and intact without any evidence of erythema, edema, discharge, or hernia. There are no peritoneal signs or guarding. SKIN: Skin appears to be pink and feels warm to touch. NEUROLOGIC: Patient is awake, alert, and follows commands appropriately. Exam/Review of Systems Vital Signs Vitals Vital Signs Date Time Temp Pulse Resp B/P Pulse Ox O2 Delivery O2 Flow Rate FiO2 02/20/17 07:49 98.3 80 20 125/59 95 02/19/17 19:42 Room Air Intake and Output 02/19/17 02/19/17 02/20/17 15:00 23:00 07:00 Intake Total 1300 ml 200 ml 1050 ml Output Total 1200 ml Balance 1300 ml 200 ml -150 ml Results Result Diagram: 02/20/17 0428 02/20/17 0428 MARI YOUNG M.D. Feb 20, 2017 13:11
[2017-02-20 14:26] VITALS: BP 128/63; RESP 19
[2017-02-20 18:56] VITALS: BP 134/64; RESP 16
[2017-02-20] MEDS: ATORVASTATIN 10 MG TAB PO SCH (21:13)
[2017-02-20] MEDS: VANCOMYCIN 1.25 GM in SOD CHLORIDE 0.9% 250 ML IVPB SCH (22:14)
[2017-02-21] MEDS: METOCLOPRAMIDE 10 MG INJ IV SCH ×3 (00:20→12:03)
[2017-02-21] MEDS: PIPER-TAZO 3.375 GM IV (PMX) 50 ML IVPB SCH ×3 (01:31→12:00)
[2017-02-21 02:20] VITALS: BP 149/72; RESP 16
[2017-02-21] MEDS: HYDROCODONE/APAP (5/325) TAB PO PRN ×2 (02:23→08:30)
[2017-02-21 05:15] LABS: BASOPHIL # 0.1 10^3/ul (0.0-0.1); BASOPHILS % 1.1 % (0.0-2.0); EOSINOPHILS # 0.2 10^3/ul (0.0-0.5); EOSINOPHILS % 2.2 % (0.0-7.0); HEMATOCRIT 32.4 % (42.0-52.0); HEMOGLOBIN 10.6 g/dl (14.0-18.0); LYMPHOCYTES # 1.2 10^3/ul (0.8-2.9); LYMPHOCYTES % 12.1 % (15.0-51.0); MEAN CORPUSCULAR HEMOGLOBIN 28.2 pg (29.0-33.0); MEAN CORPUSCULAR HGB CONC 32.7 g/dl (32.0-37.0); MEAN CORPUSCULAR VOLUME 86.2 fl (82.0-101.0); MEAN PLATELET VOLUME 8.7 fl (7.4-10.4); MONOCYTE # 0.7 10^3/ul (0.3-0.9); MONOCYTES % 7.1 % (0.0-11.0); NEUTROPHIL # 7.3 10^3/ul (1.6-7.5); NEUTROPHILS % 77.2 % (39.0-77.0); PLATELET COUNT 473 10^3/UL (140-415); RED BLOOD COUNT 3.76 10^6/ul (4.70-6.10); RED CELL DISTRIBUTION WIDTH 13.2 % (11.5-14.5); WHITE BLOOD COUNT 9.5 10^3/ul (4.8-10.8)
[2017-02-21 05:30] LABS: CALCIUM 8.3 mg/dl (8.4-10.2); CREATININE 0.96 mg/dl (0.61-1.24)
[2017-02-21] MEDS ORDERED: PANTOPRAZOLE (EC) 40 MG TAB PO SCH (06:00)
[2017-02-21 07:25] VITALS: BP 165/76; RESP 18
[2017-02-21] MEDS: ASPIRIN 81 MG TAB PO SCH (09:05)
[2017-02-21] MEDS: DULOXETINE 20 MG CAP DR PO SCH (09:05)
[2017-02-21] MEDS: LISINOPRIL 20 MG TAB PO SCH (09:06)
[2017-02-21] MEDS: BACLOFEN 10 MG TAB PO SCH (09:07)
--- NOTE | 2017-02-21 09:28 | PDOCDIS ---
Discharge Instructions CONDITION Patient Condition: Stable HOME CARE INSTRUCTIONS: Diet Instructions: Regular FOLLOW UP/APPOINTMENTS Follow-up Plan 1. Follow up with surgeon at [facility] in 2-3 days. 2.Follow up with primary care physician in 1 week If you don't have one please let someone know, we can give you resources that may help you pick one. You may also call your insurance company to assign one to you. Review your medication list with your nurse before leaving and if you need new prescriptions please let your nurse know. I may have made changes to your home medications or given you new prescriptions, please let your primary doctor know as well. Stay compliant with your medications and report any side effects to your PCP or pharmacist. Return to the ER if you have any concerns and cannot reach your doctors or call your insurance company, they usually have a nurse that can help you. 3. Call 911 or go to the nearest emergency room if experiencing loss of consciousness, dizziness, chest pain, shortness of breath, vomiting/abdominal pain, speech difficulties, motor weakness or any unusual symptoms. CRISTIANA BENTLEY NP Feb 21, 2017 09:27
[2017-02-21] MEDS ORDERED: AMOX1TAB10 PO (09:35)
[2017-02-21] MEDS ORDERED: BACL10TA PO (09:35)
[2017-02-21] MEDS ORDERED: HYDR-906 PO (09:36)
[2017-02-21] MEDS ORDERED: ONDA4TAB8 PO (09:38)
[2017-02-21] MEDS ORDERED: FAMO-96 PO (09:38)
--- NOTE | 2017-02-21 09:41 | PN ---
Date/Time of Note Date/Time of Note DATE: 02/21/17 TIME: 09:39 Assessment/Plan VTE Prophylaxis VTE Prophylaxis Intervention: ambulation Lines/Catheters [facility] Saline Lock Assessment/Plan Chief Complaint/Hosp Course 62-year-old male with recent history of gangrenous and perforated cholecystitis who is status post cholecystectomy 2 weeks ago with status post BRADLEY drain removed on Tuesday, presenting to the emergency room with ongoing Hiccups, nausea and vomiting since surgery. Patient's initial workup showed a CT with possible intra-abdominal abscess around the surgical site. 1. Recent gangrene/perforated cholecystitis with status post cholecystectomy with CT findings of small focal fluid collection within the gallbladder containing air, with possible abscess. -Expert care of is greatly appreciated and the recommendation is to continue medical management with antimicrobials as there is no immediate requirement of any surgical drainage of the abscess due to the small size of abscess as well as improvement in symptoms. -Discharge planning with outpatient follow-up with his surgeon at [facility]. 2. SIRS, likely secondary to #1. Resolved. No evidence of sepsis. 3. Hiccups/nausea/vomiting, likely GERD. Resolved. -Continue Protonix, Reglan and baclofen PRN. 4. Essential hypertension. -Continue home medications. 5. Hypercholesterolemia. -Continue statin. 6. Depression. -Continue home medications. Plan: DC planning home with outpatient follow-up with [facility] surgeon once cleared from surgery standpoint. Patient was seen in collaboration with Dr. Rose. Problems: Subjective 24 Hr Interval Summary Free Text/Dictation Overall, patient doing excellent progress. He is tolerating diet. Remains afebrile. No abdominal discomfort. Hiccups resolved. He is eager to be discharged. Exam/Review of Systems Vital Signs Vitals Vital Signs Date Time Temp Pulse Resp B/P Pulse Ox O2 Delivery O2 Flow Rate FiO2 02/21/17 07:25 97.8 81 18 165/76 93 02/19/17 19:42 Room Air Intake and Output 02/20/17 02/20/17 02/21/17 15:00 23:00 07:00 Intake Total 300 ml 1170 ml 900 ml Balance 300 ml 1170 ml 900 ml Exam General: Well developed,adequately built, not in any acute distress . HEENT: Normocephalic, Atraumatic, No laceration or hematoma; Eyes: PEERL, Conjunctiva clear, Anicteric sclera Neck: Supple without any lymphadenopathy, nontender, no JVD, no carotid bruits, trachea midline, no thyromegaly Cardiac: S1, S2 auscultated, regular rhythm and rate, no mumurs or gallop Pulmonary: Normal respiratory effort. Chest clear to auscultation bilaterally, no adventitious breath sounds GI: Abdomen with laparoscopic incisions. Soft, nontender, non- distended, no masses, no rebound tenderness or guarding. Bowel sounds active on all four quadrants Genitourinary: Deferred Extremities: No cyanosis, clubbing, or edema. Pulses [2+] bilaterally. Full ROM on all four extremities. No focal weakness appreciated. Neurologic: Alert to person, place, time, and situation. Affect appropriate, intact sensation. Skin: Clean,dry, and intact. No ecchymosis, no rashes, or lesions Results Result Diagram: 02/21/17 0443 02/21/173 Results 24 hrs Laboratory Tests Test 02/21/17 04:43 White Blood Count 9.5 Red Blood Count 3.76 L Hemoglobin 10.6 L Hematocrit 32.4 L Mean Corpuscular Volume 86.2 Mean Corpuscular Hemoglobin 28.2 L Mean Corpuscular Hemoglobin Concent 32.7 Red Cell Distribution Width 13.2 Platelet Count 473 H Mean Platelet Volume 8.7 Neutrophils % 77.2 H Lymphocytes % 12.1 L Monocytes % 7.1 Eosinophils % 2.2 Basophils % 1.1 Nucleated Red Blood Cells % 0.0 Neutrophils # 7.3 Lymphocytes # 1.2 Monocytes # 0.7 Eosinophils # 0.2 Basophils # 0.1 Nucleated Red Blood Cells # 0.0 Sodium Level 140 Potassium Level 4.0 Chloride Level 105 Carbon Dioxide Level 29 Anion Gap 10 Blood Urea Nitrogen 6 L Creatinine 0.96 Glucose Level 93 Calcium Level 8.3 L Medications Medications Current Medications Ondansetron HCl (Zofran Inj) 4 mg Q6H PRN IV NAUSEA AND/OR VOMITING; Start 01/25 at 15:00 Acetaminophen (Tylenol Tab) 650 mg Q6H PRN PO PAIN LEVEL 1-3 OR FEVER; Start 02/18/17 at 15:00 Acetaminophen (Tylenol Supp) 650 mg Q6H PRN ME PAIN LEVEL 1-3 OR FEVER; Start 02/18/17 at 15:00 Morphine Sulfate (morphine) 2 mg Q4H PRN IV SEVERE PAIN LEVEL 7-10 Last administered on 02/19/17 15:45; Admin Dose 2 MG; Start 02/18/17 at 15:00 Docusate Sodium (Colace) 100 mg Q12H PRN PO CONSTIPATION; Start 02/18/17 at 15 :00 Aspirin (Aspirin) 81 mg DAILY PO Last administered on 02/21/17 09:05; Admin Dose 81 MG; Start 02/19/17 at 09:00 Duloxetine HCl (Cymbalta) 20 mg DAILY PO Last administered on 02/21/17 09:05 ; Admin Dose 20 MG; Start 02/19/17 at 09:00 Lisinopril (Zestril) 40 mg DAILY PO Last administered on 02/21/17 09:06; Admin Dose 40 MG; Start 02/19/17 at 09:00 Atorvastatin Calcium (Lipitor) 10 mg DAILY@21 PO Last administered on 21:13; Admin Dose 10 MG; Start 02/18/17 at 21:00 Metoclopramide HCl (Reglan) 10 mg Q6 IV Last administered on 02/21/17 06:32; Admin Dose 10 MG; Start 02/18/17 at 18:00 Baclofen 5 mg 5 mg BID PO Last administered on 02/21/17 09:07; Admin Dose 5 MG; Start 02/18/17 at 21:00 Piperacillin Sod/ Tazobactam Sod (Zosyn 3.375gm/ 50 ml (Pmx)) 50 ml @ 100 mls/ hr Q6 IVPB Last administered on 02/21/17 06:32; Admin Dose 100 MLS/HR; Start 02/18/17 at 18:00 Chlorpromazine (Thorazine) 25 mg Q6 PRN IM HICCUPS Last administered on 23:53; Admin Dose 25 MG; Start 02/18/17 at 20:30 Acetaminophen/ Hydrocodone Bitart ([place] (5/325)) 1 tab Q4H PRN PO PAIN LEVEL 4 -6; Start 02/19/17 at 21:00 Acetaminophen/ Hydrocodone Bitart 2 tab 2 tab Q4H PRN PO PAIN LEVEL 7-10 Last administered on 02/21/17 08:30; Admin Dose 2 TAB; Start 02/19/17 at 21:00 Vancomycin HCl/ Sodium Chloride (Vancocin/NS) 250 ml @ 83.333 mls/ hr Q12H IVPB Last administered on 02/20/17 22:14; Admin Dose 83.333 MLS/HR; Start at 22:00 Pantoprazole (Protonix Tab) 40 mg BID@06,18 PO Last administered on 02/21/17 06:32; Admin Dose 40 MG; Start 02/21/17 at 06:00 CRISTIANA BENTLEY V. RESPIRATORY COORDINATOR Feb 21, 2017 09:41
--- NOTE | 2017-02-21 09:56 | DS ---
Date/Time of Note Date/Time of Note DATE: 02/21/17 TIME: 09:56 Discharge Summary Admission/Discharge Info Admit Date/Time Feb 18, 2017 at 12:45 Discharge Date/Time Discharge Diagnosis 1. Recent gangrene/perforated cholecystitis with status post cholecystectomy with CT findings of small focal fluid collection within the gallbladder containing air, with possible abscess. Not amenable to surgical drainage. Managed with antibiotics. 2. SIRS, likely secondary to #1. Resolved. No evidence of sepsis. 3. Hiccups/nausea/vomiting, likely GERD. Resolved. 4. Essential hypertension. 5. Hypercholesterolemia. 6. Depression. Patient Condition: Stable Consults , surgery Procedures 02/18/2017. CT abdomen and pelvis. IMPRESSION: 1. THERE IS A SMALL FOCAL FLUID COLLECTION WITHIN THE GALLBLADDER FOSSA/ SURGICAL BED MEASURING 3.9 X 2.1 X 1.6 CM, CONTAINING AIR. THIS IS NEW SINCE PRIOR EXAMINATION. CANNOT EXCLUDE THE POSSIBILITY OF ABSCESS. Postoperative seroma or biloma are also possibilities. Status post removal of previously noted surgical drainage catheter. 2. No evidence of bowel obstruction. Resolution of previously noted mildly dilated is fluid-filled loops of small bowel. 3. Prostamegaly. Recommend correlation with PSA levels. 4. No evidence of bowel obstruction. Sigmoid diverticulosis. 5. No evidence of free fluid or free air. 6. Postsurgical changes of the aorta and common iliac arteries with stents. 7. 1.9 cm posterior right lobe liver benign hemangioma. Hospital Course This is a 62-year-old very pleasant male with a recent history of gangrenous and perforated cholecystitis who is status post cholecystectomy 2 weeks ago with status post BRADLEY drain removed on 02/14/2017, presented to the emergency room with ongoing Hiccups, nausea and vomiting since surgery. Patient's initial workup showed a CT with possible intra-abdominal abscess around the surgical site. Patient also had history of hypertension, depression and hypercholesterolemia. Patient was admitted for further management. Patient had surgery evaluation. As per recommendation, patient was continued on medical management with antimicrobials as there was no immediate requirement of any surgical drainage of the abscess due to the small size and nature of the abscess. Patient responded clinically well with antibiotics. SIRS resolved. Hiccups was most likely secondary to GERD which was managed with PPIs, Reglan and baclofen. There was no further symptoms. Patient was able to tolerate diet and activities well. He was continued on his home medication for underlying hypercholesteremia and hypertension. At this time, patient is feeling back to baseline. Cultures were negative. Patient is medically stable for discharge with outpatient follow-up with [facility] once cleared from surgery standpoint. Disposition: Home. Patient verbalized discharge instructions. Approximately 60 minutes was spent in coordinating the discharge on this patient. Patient was seen in collaboration with . Home Meds Active Scripts Ondansetron Hcl* (Zofran*) 4 Mg Tablet, 4 MG PO Q6H Y for NAUSEA AND OR VOMITING , #20 TAB Prov:BENTLEYOPALA [employer] REPRESENTATIVE 02/21/17 Famotidine* (Pepcid*) 20 Mg Tablet, 20 MG PO HS for 30 Days, #30 TAB Prov:BENTLEY,CRISTIANA V. [employer] LO[employer] REPRESENTATIVE 02/21/17 Hydrocodone/Acetaminophen ([place] 5-325 Tablet) 1 Each Tablet, 1 EACH PO Q6H for PAIN, #15 TAB Prov:BENTLEYCRISTIANA V[employer] LOAN REPRESENTATIVE 02/21/17 Amoxicillin/Potassium Clav (Amox-Clav 875-125 mg Tablet) 875-125 mg Tab, 1 TAB PO BID for 10 Days, #20 TAB Prov:BENTLEY,CRISTIANA V[employer] LO[employer] REPRESENTATIVE 02/21/17 Baclofen* (Baclofen*) 10 Mg Tablet, 5 MG PO BID Y for .Hiccups, #30 TAB Prov:BENTLEY,CRISTIANA V[employer] LO[employer] REPRESENTATIVE 02/21/17 Reported Medications Aspirin* (Aspirin* Chew) 81 Mg Tab.chew, 81 MG PO DAILY, TAB.CHEW 02/18/17 Duloxetine Hcl* (Cymbalta*) 20 Mg Capsule.dr, 20 MG PO DAILY, CAP 02/18/17 Simvastatin* (Zocor*) 20 Mg Tablet, 20 MG PO QHS, #30 TAB 02/18/17 Lisinopril* (Lisinopril*) 40 Mg Tablet, 40 MG PO DAILY, #30 TAB 02/18/17 Discontinued Reported Medications Duloxetine Hcl* (Duloxetine Hcl*) 60 Mg Capsule.dr, 60 MG PO DAILY, #30 CAP 02/18/17 Multivitamins* (Multivitamins*) 1 Each Tablet, 1 TAB PO DAILY, TAB 02/18/17 Discontinued Scripts Oxycodone HCl/Acetaminophen (Percocet 5-325 mg Tablet) 1 Each Tablet, 1 EACH PO Q6, #14 TAB Prov:MARY SCHMITT DO 02/11/17 Chlorpromazine Hcl* (Thorazine*) 10 Mg Tab, 10 MG PO TID, #14 TAB Prov:MARY SCHMITT DO 02/11/17 Metoclopramide* (Reglan*) 10 Mg Tablet, 10 MG PO Q6 Y for NAUSEA AND/OR VOMITING , #20 TAB Prov:MARY SCHMITT DO 02/11/17 Follow-up Plan 1. Follow up with surgeon at [facility] in 2-3 days. 2.Follow up with primary care physician in 1 week If you don't have one please let someone know, we can give you resources that may help you pick one. You may also call your insurance company to assign one to you. Review your medication list with your nurse before leaving and if you need new prescriptions please let your nurse know. I may have made changes to your home medications or given you new prescriptions, please let your primary doctor know as well. Stay compliant with your medications and report any side effects to your PCP or pharmacist. Return to the ER if you have any concerns and cannot reach your doctors or call your insurance company, they usually have a nurse that can help you. 3. Call 911 or go to the nearest emergency room if experiencing loss of consciousness, dizziness, chest pain, shortness of breath, vomiting/abdominal pain, speech difficulties, motor weakness or any unusual symptoms. Primary Care Provider Not On Staff Doctor Pending Labs Laboratory Tests Test 02/21/17 04:43 White Blood Count 9.510^3/ul (4.8-10.8) Red Blood Count 3.7610^6/ul (4.70-6.10) Hemoglobin 10.6g/dl (14.0-18.0) Hematocrit 32.4% (42.0-52.0) Mean Corpuscular Volume 86.2fl (82.0-101.0) Mean Corpuscular Hemoglobin 28.2pg (29.0-33.0) Mean Corpuscular Hemoglobin Concent 32.7g/dl (32.0-37.0) Red Cell Distribution Width 13.2% (11.5-14.5) Platelet Count 65452^3/UL (140-415) Mean Platelet Volume 8.7fl (7.4-10.4) Neutrophils % 77.2% (39.0-77.0) Lymphocytes % 12.1% (15.0-51.0) Monocytes % 7.1% (0.0-11.0) Eosinophils % 2.2% (0.0-7.0) Basophils % 1.1% (0.0-2.0) Nucleated Red Blood Cells % 0.0/100WBC (0.0-0.0) Neutrophils # 7.310^3/ul (1.6-7.5) Lymphocytes # 1.210^3/ul (0.8-2.9) Monocytes # 0.710^3/ul (0.3-0.9) Eosinophils # 0.210^3/ul (0.0-0.5) Basophils # 0.110^3/ul (0.0-0.1) Nucleated Red Blood Cells # 0.010^3/ul (0.0-0.0) Sodium Level 140mmol/L (135-144) Potassium Level 4.0mmol/L (3.5-5.1) Chloride Level 105mmol/L (97-110) Carbon Dioxide Level 29mmol/L (21-31) Anion Gap 10 (8-16) Blood Urea Nitrogen 6mg/dl (7-20) Creatinine 0.96mg/dl (0.61-1.24) Glucose Level 93mg/dl (70-220) Calcium Level 8.3mg/dl (8.4-10.2) CRISTIANA BENTLEY V[employer] LO[employer] REPRESENTATIVE Feb 21, 2017 09:56
[2017-02-21] MEDS: VANCOMYCIN 1.25 GM in SOD CHLORIDE 0.9% 250 ML IVPB SCH (10:27)
--- NOTE | 2017-02-21 14:22 | PN ---
Date/Time of Note Date/Time of Note DATE: 02/21/17 TIME: 14:21 Assessment/Plan Lines/Catheters IV Catheter Type (from [facility]): Saline Lock Assessment/Plan Assessment/Plan [facility] Progress Note Date of Service: 02/21/2017 Location of Service: Fourth floor Today's Assessment & Plan: Overall stable and doing well. Abdomen remains benign. No indication for acute surgical intervention. Ok to d/c from my standpoint. Patient appeared to understand and agreed with plans. With above assessment, I've recommended the followin. D/c home 2. F/u with PCP 3. F/u with original surgeon Thank you very much for having me involved in the care of this very pleasant patient and wonderful family. If you have any questions, please feel free to contact me at [phone]. Nature of presenting problem: Moderate severity Please note that, given the multiple number of diagnoses or management options, the moderate amount and/or complexity of data needed to be reviewed, and moderate risk of complications and/or morbidity or mortality, this qualifies as moderate complexity type of decision-making. Disclaimers: 1. Inadvertent spelling and grammatical errors are likely due to electronic health record (EHR)/dictation software used and do not reflect on the quality of delivered patient care. 2. The electronic timestamp recorded on this note does not necessarily reflect the actual date and time of the visit or the service. 3. Portions of this note may have been created through electronic templates and computer algorithms that might bring in information either from the system or from other physicians and providers. Please note that such information may or may not contain errors, the occurrence of which are outside of my control. In general (but not always) this happens either in the beginning or at the end of the note. The portion of the note that I have created are generally done in 1 continuous block of text, flanked at the beginning and at the end by " ", and entered into one field in the EHR. 4. There may be other unanticipated errors in the note that are outside of my control. I can only attest to the portions of the note that I have created. Updated clinical summary: A very-pleasant 62-year-old gentleman with a few comorbidities including few abdominal operations in the past, presenting with a picture consistent with possible infectious complication after what appears to be difficult and complicated gangrenous cholecystitis and was treated with laparoscopic cholecystectomy 2 weeks ago. Comorbidities: 1. Acute cholecystitis with gangrene, status post laparoscopic cholecystectomy end of January 2017 [facility], with surgical drain, removed 2016. Complicated by 2 weeks of hiccups that were intractable as well as 2 visits to the emergency department within the first 2 weeks of surgery, second which led to admission 2. Left inguinal hernia repair 3. 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 Status post appendectomy 5. Essential hypertension 6. Hypercholesterolemia 7. Depression Subjective: No major events or complaints; reports feeling much better; no abd pain and under control with medications; no n/v/d; no sob or cp; + bowel activity; + activity Objective: Vitals: See below Exam: GENERAL: On exam, the patient was laying in bed and appeared to be comfortable and in no acute distress. ABDOMEN: Soft, nontender and nondistended. Incisions are clean, dry and intact without any evidence of erythema, edema, discharge, or hernia. There are no peritoneal signs or guarding. SKIN: Skin appears to be pink and feels warm to touch. NEUROLOGIC: Patient is awake, alert, and follows commands appropriately. Exam/Review of Systems Vital Signs Vitals Vital Signs Date Time Temp Pulse Resp B/P Pulse Ox O2 Delivery O2 Flow Rate FiO2 02/21/17 07:25 97.8 81 18 165/76 93 02/19/17 19:42 Room Air Intake and Output 02/20/17 02/20/17 02/21/17 14:59 22:59 06:59 Intake Total 300 ml 1170 ml 900 ml Balance 300 ml 1170 ml 900 ml Results Result Diagram: 02/21/17 0443 02/21/17 0443 MARI YOUNG M.D. Feb 21, 2017 14:22
== END 2017-02-21 12:40 | disposition home or self-care (01) | DRG 862 ==
LOC: E/R 09:47 → MS1 12:45
PROVIDERS: ADMIT Internal Medicine; ATTEND Internal Medicine
DX: T81.4XXA Infection following a procedure, initial encounter (principal); K65.1 Peritoneal abscess; Y83.8 Other surgical procedures as the cause of abnormal reaction of the patient, or of later complication, without mention of misadventure at the time of the procedure; Y92.019 Unspecified place in single-family (private) house as the place of occurrence of the external cause; I10 Essential (primary) hypertension; E78.5 Hyperlipidemia, unspecified; F32.9 Major depressive disorder, single episode, unspecified; R06.6 Hiccough; K91.0 Vomiting following gastrointestinal surgery; K21.9 Gastro-esophageal reflux disease without esophagitis; Z87.891 Personal history of nicotine dependence
CPT/HCPCS: 36415; 74177; 80048; 80053; 80061; 80202; 81003; 83036; 83540; 83605; 83690; 83735; 84100; 84439; 84443; 84481; 84484; 85025; 85610; 85730; 87040; 87086; 93005; 96372; 96374; 96375; C9113; J1170; J2270; J2405; J2543; J2765; J3230; J3370; J7030; J7050; Q9967

== ENCOUNTER 2017-09-07 06:36 | Day surgery (SDC) | END 2017-09-07 10:30 | disposition home or self-care (01) ==